=== PATIENT | male | born 1980 | race Caucasian/White ===

== ENCOUNTER 2017-01-26 08:37 | Emergency (ER) | payer MEDICAID ==
[~2017-01-26 08:37] MED LIST: COGENTIN DPS1 MG PO; FOLTRATE TABLE1 EACH PO; GLUCOPHAGE-DPS500 MG PO; HUMALOG100 UNIT/1 SQ; KLONOPIN DPS0.5 MG PO; PROTONIX40 MG PO; THERA1 EACH PO; TOPROL XL100 MG PO; VITAMIN B1100 MG PO; ZESTRIL DPS40 MG PO; [UNRECOGNIZED DRUG - OTHER] IM
--- NOTE | 2017-02-01 16:08 | ER ---
ADMIT: 01/26/2017 RM/LOC: ER [facility] MR#: [id number] [address] [id number] VALDO WOODSON [address] [place] [address] Emergency Room Report SEX: M AGE: 36 : 1980 DATE: 01/26/2017 ADDENDUM: CHIEF COMPLAINT: Anxiety. HISTORY OF PRESENT ILLNESS: This is a 36-year-old male, who has a history of schizophrenia. He deals with hearing voices every day. He takes his medications as prescribed. The only reason he is here today is because he said he has not been able to sleep for 2 days. I have given him Valium 5 mg p.o., and then discharging him. He said he just wants something to help him relax and go to sleep. CLINICAL IMPRESSION: Anxiety. DISPOSITION: Stable at discharge. FOLLOWUP: He will follow up with [facility] either later today or early next week. RUBY Ruvalcaba / Slim Tolbert MD / modl JOB #: [id number] CC: Slim Tolbert MD, Attending Physician UNKNOWN, Family Physician
== END 2017-01-26 09:38 | disposition home or self-care (01) ==
LOC: ER 08:37
DX: F41.9 Anxiety disorder, unspecified (principal); I10 Essential (primary) hypertension; E11.9 Type 2 diabetes mellitus without complications; E78.00 Pure hypercholesterolemia, unspecified; F31.9 Bipolar disorder, unspecified; Z79.899 Other long term (current) drug therapy